=== PATIENT | female | born 1935 | race Caucasian/White ===

== ENCOUNTER 2017-09-03 13:21 | Emergency (ER) | payer MEDICARE, OTHER ==
[2017-09-03] MEDS ORDERED: Sodium Chloride 0.9% 10 ML Syringe FLUSH PRN (13:52)
[2017-09-03] MEDS ORDERED: Albuterol/Ipratropium 3.0-0.5 MG/3 ML Neb Soln NEB PRN (13:57)
[2017-09-03] MEDS ORDERED: methylPREDNISolone Sodium Succinate 125 MG/2 ML SDV IM ONE (13:59)
[2017-09-03] MEDS ORDERED: Sodium Chloride 0.9% 1,000 ML IV SCH (14:00)
[2017-09-03] MEDS ORDERED: methylPREDNISolone Sodium Succinate 125 MG/2 ML SDV ONE (14:21)
[2017-09-03] MEDS: cefTRIAXone 2 GM Vial ONE ×2 (15:49→17:11)
[2017-09-03] MEDS ORDERED: cefTRIAXone 2 GM in Sodium Chloride 0.9% 100 ML IV ONE (15:50)
--- NOTE | 2017-09-03 15:50 | EDM.PDOC ---
ED HPI GENERAL MEDICAL PROBLEM - General Chief Complaint: General Stated Complaint: SOB/FEVER Time Seen by Provider: 09/03/17 13:22 Source of Information: Reports: Patient, Family History Limitations: Reports: No Limitations - History of Present Illness INITIAL COMMENTS - FREE TEXT/NARRATIVE: Patient is a 81 year old woman who has COPD and is status post carotid endarterectomy, AAA and bilateral femoral artery repair at [facility] by Dr. Ruiz. She has had cold symptoms the last 2 and 1/2 days since 2017 that have been flaring her COPD and causing her to be more short of breath. This afternoon her breathing worsened and by the time her daughter and son in law got her to the ED her oxygen was 77% on room air. She has had no pain but just difficulty breathing. Onset: Gradual Onset Date: 09/01/17 Onset Time: 09:00 Duration: Day(s): (2.5) Location: Reports: Chest Quality: Reports: Same as Previous Episode Severity: Severe Improves with: Reports: Medication, Other (Oxygen and breathing treatments.) Worsens with: Reports: Movement Context: Reports: Other (History of multiple vascular surgery procedures.) Associated Symptoms: Reports: No Other Symptoms - Related Data Allergies Allergy/AdvReac Type Severity Reaction Status Date / Time No Known Allergies Allergy Verified 09/03/17 14:12 Home Meds: Home Meds Aspirin 162 mg PO DAILY 09/03/17 [History] Metoprolol Succinate [Toprol Xl] 50 mg PO DAILY 09/03/17 [History] amLODIPine Besylate [Amlodipine Besylate] 10 mg PO QPM 09/03/17 [History] atorvaSTATin [Lipitor] 20 mg PO DAILY 09/03/17 [History] Social & Family History - Tobacco Use Smoking Status *Q: Former Smoker Used Tobacco, but Quit: Yes Month Tobacco Last Used: 8 ED ROS GENERAL - Review of Systems Review Of Systems: See Below Constitutional: Reports: Weakness HEENT: Reports: No Symptoms Respiratory: Reports: Shortness of Breath, Wheezing, Cough Cardiovascular: Reports: No Symptoms Endocrine: Reports: No Symptoms GI/Abdominal: Reports: No Symptoms : Reports: No Symptoms Musculoskeletal: Reports: No Symptoms Skin: Reports: No Symptoms Neurological: Reports: No Symptoms Psychiatric: Reports: No Symptoms Hematologic/Lymphatic: Reports: No Symptoms Immunologic: Reports: No Symptoms ED EXAM, GENERAL - Physical Exam Exam: See Below Exam Limited By: No Limitations General Appearance: Alert, Moderate Distress Eye Exam: Bilateral Eye: EOMI, Normal Fundi, Normal Inspection Ears: Normal External Exam, Normal Canal, Hearing Grossly Normal, Normal TMs Ear Exam: Bilateral Ear: Auricle Normal, Canal Normal, TM normal Nose: Normal Inspection, Normal Mucosa, No Blood Throat/Mouth: Normal Inspection, Normal Lips, Normal Teeth, Normal Gums, Normal Oropharynx, Normal Voice, No Airway Compromise Head: Atraumatic, Normocephalic Neck: Normal Inspection, Supple, Non-Tender, Full Range of Motion Respiratory/Chest: Respiratory Distress, Decreased Breath Sounds, Rales ( Bibasilar R>L), Wheezing Cardiovascular: Normal Peripheral Pulses, Regular Rate, Rhythm, No Edema, No Gallop, No JVD, No Murmur, No Rub GI/Abdominal: Normal Bowel Sounds, Soft, Non-Tender, No Organomegaly, No Distention, No Abnormal Bruit, No Mass Back Exam: Normal Inspection, Full Range of Motion, NT Extremities: Normal Inspection, Normal Range of Motion, Non-Tender, Normal Capillary Refill, No Pedal Edema Neurological: Alert, Oriented, CN II-XII Intact, Normal Cognition, Normal Gait, Normal Reflexes, No Motor/Sensory Deficits Psychiatric: Normal Affect, Normal Mood Skin Exam: Warm, Dry, Intact, Normal Color, No Rash Lymphatic: No Adenopathy EKG INTERPRETATION EKG Date: 09/03/17 Rhythm: NSR [place]: Normal P-Wave: Present QRS: Normal ST-T: Other (Diffuse ST changes in both anterior and inferior leads.) QT: Normal Comparison: NA - No Prior EKG Course - Vital Signs Text/Narrative:: Patient had an Oxygen level on RA on admission to ED of 77%. She was put on 100 % oxygen with nonbreather mask and given a Duoneb which brought her Oxygen level to 97%. She felt much better at that level. She has elevated Troponin of 2.52 and EKG changes consistent with a NSTEMI. She will be flown by [employer] to [facility] where her Cardiologists and Vascular Surgeons are. She is pain free and breathing good on her nonrebreathing mask. Dr. Johnson has accepted her in transport. Last Recorded V/S: Last Vital Signs Temp 37.7 C 09/03/17 13:21 Pulse 101 H 09/03/17 14:48 Resp 24 H 09/03/17 13:21 BP 101/63 09/03/17 15:39 Pulse Ox 100 09/03/17 14:48 - Orders/Labs/Meds Orders: Active Orders 24 hr Category Date Time Status EKG Documentation Completion [RC] ASDIRECTED Care 09/03/17 13:52 Active RT Aerosol Therapy [RC] ASDIRECTED Care 09/03/17 13:58 Active CXR [Chest 1V Frontal] [CR] Stat Exams 09/03/17 13:53 Taken Albuterol/Ipratropium [DuoNeb 3.0-0.5 MG/3 ML] Med 09/03/17 13:57 Active 3 ml NEB Q2H PRN Sodium Chloride 0.9% [Normal Saline] 1,000 ml Med 09/03/17 14:00 Active IV ASDIRECTED Sodium Chloride 0.9% [Saline Flush] Med 09/03/17 13:52 Active 10 ml FLUSH ASDIRECTED PRN Saline Lock Insert [OM.PC] Routine Oth 09/03/17 13:52 Ordered Medication Orders Albuterol/Ipratropium (Duoneb 3.0-0.5 Mg/3 Ml) 3 ml NEB Q2H PRN PRN Reason: Dyspnea Last Admin: 09/03/17 13:45 Dose: 3 ml Sodium Chloride (Normal Saline) 1,000 mls @ 125 mls/hr IV ASDIRECTED REBEKAH Last Admin: 09/03/17 14:14 Dose: 125 mls/hr Sodium Chloride (Saline Flush) 10 ml FLUSH ASDIRECTED PRN PRN Reason: Keep Vein Open Labs: Laboratory Tests 09/03/17 09/03/17 Range/Units 14:30 14:30 WBC 16.4 H D (4.0-11.0) K/uL RBC 4.47 (3.80-5.80) M/uL Hgb 13.7 (11.5-16.5) g/dL Hct 40.9 (37.0-47.0) % MCV 92 (76-96) fL MCH 30.6 (27.0-32.0) pg MCHC 33.5 (31.0-35.0) g/dL RDW 13.1 (11.0-16.0) % Plt Count 99 L D (150-500) K/uL Neut % (Auto) 83.4 H (45.0-70.0) % Lymph % (Auto) 5.8 L (20.0-40.0) % [place] % (Auto) 10.7 H (3.0-10.0) % Eos % (Auto) 0.0 L (1.0-5.0) % Baso % (Auto) 0.1 (0.0-0.5) % Neut # (Auto) 13.66 H (2.00-7.50) K/uL Lymph # (Auto) 0.95 L (1.50-4.00) K/uL [place] # (Auto) 1.75 H (0.20-0.80) K/uL Eos # (Auto) 0.00 L (0.04-0.40) K/uL Baso # (Auto) 0.01 L (0.02-0.10) K/uL Sodium 134 L (136-145) mmol/L Potassium 3.8 (3.5-5.1) mmol/L Chloride 98 (98-107) mmol/L Carbon Dioxide 26.9 D (21.0-32.0) mmol/L Anion Gap 12.9 (5.0-15.0) mmol/L BUN 17 (8-26) mg/dL Creatinine 1.08 H (0.55-1.02) mg/dL Est Cr Clr Drug Dosing TNP Estimated GFR (MDRD) 49 L (>60) MLS/MIN BUN/Creatinine Ratio 15.7 (6-25) Glucose 151 H D (74-100) mg/dL Calcium 8.7 (8.5-10.1) mg/dL Total Bilirubin 0.8 D (0.0-1.0) mg/dL AST 73 H (15-37) U/L ALT 26 (12-78) U/L Alkaline Phosphatase 91 (46-116) U/L Troponin I 2.520 H* (0.000-0.060) ng/mL Total Protein 7.5 (6.4-8.2) g/dL Albumin 3.6 (3.4-5.0) g/dL Globulin 3.9 (2.2-4.2) g/dL Albumin/Globulin Ratio 0.9 (0.8-2.0) Meds: Medications Generic Name Dose Route Start Last Admin Trade Name Freq PRN Reason Stop Dose Admin Albuterol/Ipratropium 3 ml 09/03/17 13:57 09/03/17 13:45 Duoneb 3.0-0.5 Mg/3 Ml NEB 3 ml Q2H PRN Administration Dyspnea Sodium Chloride 1,000 mls @ 125 mls/hr 09/03/17 14:00 09/03/17 14:14 Normal Saline IV 125 mls/hr ASDIRECTED REBEKAH Administration Sodium Chloride 10 ml 09/03/17 13:52 Saline Flush FLUSH ASDIRECTED PRN Keep Vein Open Discontinued Medications Generic Name Dose Route Start Last Admin Trade Name Freq PRN Reason Stop Dose Admin Ceftriaxone Sodium Confirm 09/03/17 15:36 Rocephin Administered 09/03/17 15:37 Dose 2 gm .ROUTE .STK-MED ONE Methylprednisolone Sodium Succinate 125 mg 09/03/17 13:59 09/03/17 14:21 Solu-Medrol IM 09/03/17 14:00 125 mg ONETIME ONE Administration Methylprednisolone Sodium Succinate Confirm 09/03/17 14:21 09/03/17 14:30 Solu-Medrol Administered 09/03/17 14:22 Not Given Dose 125 mg .ROUTE .STK-MED ONE Departure - Departure Time of Disposition: 16:03 Disposition: DC/Tfer to Acute Hospital 02 Condition: Fair Clinical Impression: Pneumonia, NSTEMI (non-ST elevated myocardial infarction) - Discharge Information Referrals: PCP,None [Primary Care Provider] - - My Orders Last 24 Hours: My Active Orders 09/03/17 13:52 EKG Documentation Completion [RC] ASDIRECTED Sodium Chloride 0.9% [Saline Flush] 10 ml FLUSH ASDIRECTED PRN Saline Lock Insert [OM.PC] Routine 09/03/17 13:53 CXR [Chest 1V Frontal] [CR] Stat 09/03/17 13:57 Albuterol/Ipratropium [DuoNeb 3.0-0.5 MG/3 ML] 3 ml NEB Q2H PRN 09/03/17 13:58 RT Aerosol Therapy [RC] ASDIRECTED 09/03/17 14:00 Sodium Chloride 0.9% [Normal Saline] 1,000 ml IV ASDIRECTED - Assessment/Plan Last 24 Hours: My Active Orders 09/03/17 13:52 EKG Documentation Completion [RC] ASDIRECTED Sodium Chloride 0.9% [Saline Flush] 10 ml FLUSH ASDIRECTED PRN Saline Lock Insert [OM.PC] Routine 09/03/17 13:53 CXR [Chest 1V Frontal] [CR] Stat 09/03/17 13:57 Albuterol/Ipratropium [DuoNeb 3.0-0.5 MG/3 ML] 3 ml NEB Q2H PRN 09/03/17 13:58 RT Aerosol Therapy [RC] ASDIRECTED 09/03/17 14:00 Sodium Chloride 0.9% [Normal Saline] 1,000 ml IV ASDIRECTED
[2017-09-03] MEDS ORDERED: Azithromycin 500 MG in Sodium Chloride 0.9% 250 ML IV ONE (15:51)
--- NOTE | 2017-09-04 08:25 | CR ---
DATE OF SERVICE: 09/03/17 CLINICAL DATA: Dyspnea AP CHEST: Comparison is made to a prior exam dated 05/21/11. The heart is enlarged. It has increased in size from the prior exam. There is calcification of the aortic arch. The pulmonary vasculature appears more prominent than on the prior exam and there is some cephalization of flow consistent with pulmonary venous congestion. Congestive failure is suspected. There are densities in both lower lungs, right greater than left consistent with basilar atelectasis or infiltrate. Pneumonia should be considered. There is a small calcified granuloma in the right lower lung. No pneumothorax. No pleural effusions. [id number] [facility]
== END 2017-09-03 16:50 ==
LOC: LB.ED 13:21
DX: I21.4 Non-ST elevation (NSTEMI) myocardial infarction (principal); J18.9 Pneumonia, unspecified organism; Z79.82 Long term (current) use of aspirin; Z79.899 Other long term (current) drug therapy; Z87.891 Personal history of nicotine dependence
CPT/HCPCS: 36415; 71045; 80053; 84484; 85025; 85610; 85730; 87040; 87804; 93005; 96361; 96365; 96372; 96375; 99285; A0425; A0429; J0456; J0696; J2930; J7030; J7040; J7050; J7620

== ENCOUNTER 2017-10-03 05:12 | Observation (INO) | payer MEDICARE, OTHER ==
--- NOTE | 2017-10-03 05:36 | EDM.PDOC ---
ED HPI GENERAL MEDICAL PROBLEM - General Chief Complaint: General Stated Complaint: HEMATEMESIS Time Seen by Provider: 10/03/17 05:34 Source of Information: Reports: Patient, RN History Limitations: Reports: No Limitations - History of Present Illness INITIAL COMMENTS - FREE TEXT/NARRATIVE: 81 yr female presents with n/V/Diarrhea. States vomitted some blood this am. States recent discharge from hospital for pneumonia. - Related Data Allergies Allergy/AdvReac Type Severity Reaction Status Date / Time imaging dye Allergy Hives Uncoded 10/03/17 15:51 Home Meds: Home Meds Aspirin 81 mg PO BID 09/03/17 [History] Metoprolol Succinate [Toprol Xl] 150 mg PO DAILY 09/03/17 [History] atorvaSTATin [Lipitor] 20 mg PO DAILY 09/03/17 [History] Cetirizine HCl [Zyrtec] 10 mg PO DAILY 10/03/17 [History] Furosemide 20 mg PO ASDIRECTED 10/03/17 [History] Umeclidinium Brm/Vilanterol Tr [Anoro Ellipta 62.5-25 MCG] 1 puff IH DAILY 10/03 [History] Past Medical History Cardiovascular History: Reports: CAD, [place] Other Cardiovascular History: States bottom two valves are "lazy". 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 Vuong notes Cardiovascular Surgical History: Reports: Other (See Below) Other Cardiovascular Surgeries/Procedures: [facility] GI Surgical History: Reports: Hernia Repair/Other Social & Family History - Family History Family Medical History: Noncontributory - Tobacco Use Smoking Status *Q: Former Smoker Used Tobacco, but Quit: Yes Month Tobacco Last Used: 8 ED ROS GENERAL - Review of Systems Review Of Systems: See Below Constitutional: Reports: Weakness. Denies: Fever, Chills HEENT: Reports: No Symptoms Respiratory: Reports: Cough Cardiovascular: Reports: Other (fast heart rate) GI/Abdominal: Reports: Diarrhea, Nausea, Vomiting Musculoskeletal: Reports: No Symptoms Skin: Reports: No Symptoms Neurological: Reports: No Symptoms Psychiatric: Reports: No Symptoms ED EXAM, GENERAL - Physical Exam Exam: See Below Exam Limited By: No Limitations General Appearance: Alert Nose: Normal Inspection Throat/Mouth: Normal Inspection, No Airway Compromise Head: Atraumatic, Normocephalic Neck: Normal Inspection, Supple, Non-Tender Respiratory/Chest: No Respiratory Distress, Lungs Clear, Normal Breath Sounds Cardiovascular: Normal Peripheral Pulses, Regular Rate, Rhythm, No Edema GI/Abdominal: Normal Bowel Sounds, Soft, Non-Tender Extremities: Normal Inspection, Non-Tender, Normal Capillary Refill Neurological: Alert, Oriented, Normal Cognition Psychiatric: Normal Affect, Normal Mood Skin Exam: Warm, Dry, Normal Color EKG INTERPRETATION EKG Date: 10/03/17 Time: 06:31 Rhythm: NSR Rate (Beats/Min): 77 P-Wave: Present QRS: Normal Comparison: No Change Course - Vital Signs Last Recorded V/S: Last Vital Signs Temp 99 F 10/03/17 16:00 Pulse 88 10/03/17 16:00 Resp 16 10/03/17 16:00 BP 126/70 10/03/17 16:00 Pulse Ox 92 L 10/03/17 16:00 - Orders/Labs/Meds Orders: Medication Orders Atorvastatin Calcium (Lipitor) 20 mg PO DAILY [facility] Last Admin: 10/03/17 13:27 Dose: Not Given Sodium Chloride (Sodium Chloride 0.45%) 1,000 mls @ 125 mls/hr IV ASDIRECTED [facility] Last Admin: 10/03/17 08:59 Dose: 125 mls/hr Metoprolol Succinate (Toprol Xl) 150 mg PO DAILY [facility] Last Admin: 10/03/17 13:26 Dose: Not Given Nf Med 1 Each ( Umeclidinium Brm/Vilanterol Tr [Anoro Ellipta 62.5-25 Mcg * Pt Own Med 1 puff IH DAILY [facility] Last Admin: 10/03/17 13:46 Dose: Not Given Ondansetron HCl (Zofran) 4 mg IVPUSH Q6H [facility] Last Admin: 10/03/17 13:14 Dose: 4 mg Admin: 10/03/17 06:30 Dose: 4 mg Pantoprazole Sodium (Protonix Iv) 40 mg IVPUSH Q12H REBEKAH Last Admin: 10/03/17 13:14 Dose: 40 mg Sodium Chloride (Saline Flush) 10 ml FLUSH ASDIRECTED PRN PRN Reason: Keep Vein Open Labs: Laboratory Tests 10/03/17 10/03/17 10/03/17 Range/Units 05:30 05:41 05:41 WBC 7.8 D (4.0-11.0) K/uL RBC 3.33 L (3.80-5.80) M/uL Hgb 10.2 L D (11.5-16.5) g/dL Hct 32.1 L D (37.0-47.0) % MCV 96 (76-96) fL MCH 30.6 (27.0-32.0) pg MCHC 31.8 (31.0-35.0) g/dL RDW 14.1 (11.0-16.0) % Plt Count 221 D (150-500) K/uL MPV 11.3 H (6.0-10.0) fL Neut % (Auto) 49.2 (45.0-70.0) % Lymph % (Auto) 33.2 (20.0-40.0) % [place] % (Auto) 13.8 H (3.0-10.0) % Eos % (Auto) 3.3 (1.0-5.0) % Baso % (Auto) 0.5 (0.0-0.5) % Neut # (Auto) 3.85 (2.00-7.50) K/uL Lymph # (Auto) 2.60 (1.50-4.00) K/uL [place] # (Auto) 1.08 H (0.20-0.80) K/uL Eos # (Auto) 0.26 (0.04-0.40) K/uL Baso # (Auto) 0.04 (0.02-0.10) K/uL Sodium 147 H (136-145) mmol/L Potassium 4.6 D (3.5-5.1) mmol/L Chloride 109 H (98-107) mmol/L Carbon Dioxide 28.7 (21.0-32.0) mmol/L Anion Gap 13.9 (5.0-15.0) mmol/L BUN 30 H D (8-26) mg/dL Creatinine 1.19 H (0.55-1.02) mg/dL Est Cr Clr Drug Dosing TNP Estimated GFR (MDRD) 44 L (>60) MLS/MIN BUN/Creatinine Ratio 25.2 H (6-25) Glucose 135 H (74-100) mg/dL Calcium 8.4 L (8.5-10.1) mg/dL Total Bilirubin 0.4 D (0.0-1.0) mg/dL AST 19 (15-37) U/L ALT 19 (12-78) U/L Alkaline Phosphatase 74 (46-116) U/L Troponin I < 0.017 D (0.000-0.060) ng/mL Total Protein 5.8 L (6.4-8.2) g/dL Albumin 2.7 L (3.4-5.0) g/dL Globulin 3.1 (2.2-4.2) g/dL Albumin/Globulin Ratio 0.9 (0.8-2.0) Meds: Medications Generic Name Dose Route Start Last Admin Trade Name Freq PRN Reason Stop Dose Admin Atorvastatin Calcium 20 mg 10/03/17 11:00 10/03/17 13:27 Lipitor PO Not Given DAILY REBEKAH Sodium Chloride 1,000 mls @ 125 mls/hr 10/03/17 06:30 10/03/17 08:59 Sodium Chloride 0.45% IV 125 mls/hr ASDIRECTED REBEKAH Administration Metoprolol Succinate 150 mg 10/03/17 11:00 10/03/17 13:26 Toprol Xl PO Not Given DAILY REBEKAH Nf Med 1 Each ( 1 puff 10/03/17 10:45 10/03/17 13:46 Umeclidinium Brm/ IH Not Given Vilanterol Tr [Anoro DAILY REBEKAH Ellipta 62.5-25 Mcg * Pt Own Med Ondansetron HCl 4 mg 10/03/17 06:30 10/03/17 13:14 Zofran IVPUSH 4 mg Q6H REBEKAH Administration Pantoprazole Sodium 40 mg 10/03/17 11:00 10/03/17 13:14 Protonix Iv IVPUSH 40 mg Q12H REBEKAH Administration Sodium Chloride 10 ml 10/03/17 15:50 Saline Flush FLUSH ASDIRECTED PRN Keep Vein Open Discontinued Medications Generic Name Dose Route Start Last Admin Trade Name Juan PRN Reason Stop Dose Admin Hydromorphone HCl 1 mg 10/03/17 15:58 Dilaudid IVPUSH 10/03/17 15:59 ONETIME ONE Hydromorphone HCl Confirm 10/03/17 16:00 10/03/17 16:10 Dilaudid Administered 10/03/17 16:01 Not Given Dose 4 mg .ROUTE .STK-MED ONE Sodium Chloride 1,000 mls @ 125 mls/hr 10/03/17 05:45 Normal Saline IV ASDIRECTED REBEKAH Sodium Chloride 1,000 mls @ 999 mls/hr 10/03/17 15:49 10/03/17 15:00 Normal Saline IV 10/03/17 16:49 999 mls/hr .BOLUS ONE Administration Pantoprazole Sodium 40 mg 10/03/17 06:19 10/03/17 08:56 Protonix Iv IVPUSH 10/03/17 06:20 40 mg ONETIME ONE Administration - Re-Assessments/Exams Free Text/Narrative Re-Assessment/Exam: 10/03/17 06:31 History of heart disease will check Troponin and EKG. Zofran given for nausea and states some relief of nausea. Pt sitting with HOB elevated 30* and resting. No chest pain. Family here and concerned heart related nausea. Pain to abdomen was right middle,lateral of abdomen. No more vomiting since home. Son states bright red blood at pt home in sink. Pt quiet and resting, no acute distress. EKG completed. 10/03/17 06:39 Will admit to observation. Start IV 0.45 normal saline at 125cc /hr, Protonix 40 mg IV and will get stool for occult blood. Pt resting well and no acute distress, no shortness of breath and no pain. EKG shows NSR Inferior infarct age undetermined, no change from previous tracing with this. 10/03/17 06:44 Transfer to observation. Free Text/Narrative Re-Assessment/Exam: 10/03/17 09:01 Pt had loose stool, test positive for occult blood. Consult w Dr Thomas, PCP of pt. Will check abdomen x-ray, influenza screen, U/A and repeat troponins. Continue to observe and IV fluids. Free Text/Narrative Re-Assessment/Exam: 10/03/17 17:06 Pt continues with nausea and vomiting with hematemesis and hematchezia. IV Zofran and Protonix 80 mg IV given to pt. Hgb decrease from 10.2 on admit to 9.3. Abdominal flat and upright x-ray completed with possible , early bowel obstruction or ileus. Pt has history of aortic aneurysm repair 2010. History of pneumonia in last month and [facility] reported per pt. Pt has been having loose stools for about 2 months. C-diff negative, checked today. Contacted [facility] for transfer and facility report no ICU beds and unable to take pt. Contacted [facility], [facility] and accepting physician of Dr Kay, internal medicine to ICU. Pt has been stable vital signs 99.0, 88- 16 - 126/60 and SpO2=92% on room air. 2 IV's with 0.9% Nacl with 2 liters infusing. Family present and aware of pt condition. SonRick is leaving facility by car to meet pt in [place]. DaughterErick and son-in-law here with pt. Pt signed appropriate forms for transfer and transport. Local EMS is BLS and not supported to transfer pt with acute hematemesis and hematchezia. Pt remains stable during this visit. Will transport [employer]. Departure - Departure Time of Disposition: 17:00 Disposition: DC/Tfer to Acute Hospital 02 Condition: Serious Clinical Impression: Gastrointestinal bleed, Hematochezia, Hematemesis with nausea - Discharge Information
[2017-10-03] MEDS ORDERED: Sodium Chloride 0.9% 1,000 ML IV SCH (05:45)
[2017-10-03] MEDS ORDERED: Pantoprazole 40 MG Vial IVPUSH ONE (06:19)
[2017-10-03] MEDS: Ondansetron 4 MG/2 ML SDV IVPUSH SCH ×2 (06:30→13:14)
[2017-10-03] MEDS ORDERED: Sodium Chloride 0.45% 1,000 ML IV SCH (06:30)
[2017-10-03] MEDS ORDERED: UMECLIDINIUM BRM IH SCH (10:45)
[2017-10-03] MEDS ORDERED: VILANTEROL TR IH SCH (10:45)
[2017-10-03] MEDS ORDERED: METOPROLOL SUCCINATE 50 MG PO SCH (11:00)
[2017-10-03] MEDS ORDERED: Pantoprazole 40 MG Vial IVPUSH SCH (11:00)
[2017-10-03] MEDS ORDERED: ATORVASTATIN 20 MG PO SCH (11:00)
--- NOTE | 2017-10-03 12:21 | CR ---
DATE OF SERVICE: 10/03/17 CLINICAL DATA: abdominal pain, nausea SUPINE AND UPRIGHT ABDOMEN: Comparison is made to a prior exam dated 05/23/11. There are numerous surgical clips in the mid abdomen. There is a moderate amount of stool noted throughout the colon. There is some small bowel gas. There are scattered air-fluid levels noted within the small bowel and colon on the upright film. Early distal obstruction or early ileus is suspected. No free air. There are vascular calcifications in the left upper abdomen and pelvis. No other significant findings. [id number] MTD[facility]
[2017-10-03] MEDS ORDERED: Sodium Chloride 0.9% 1,000 ML IV ONE (15:49)
[2017-10-03] MEDS ORDERED: Sodium Chloride 0.9% 10 ML Syringe FLUSH PRN (15:50)
[2017-10-03] MEDS ORDERED: HYDROmorphone 2 MG/ML Syringe IVPUSH ONE (15:58)
[2017-10-03] MEDS ORDERED: HYDROmorphone 4 MG/ML Syringe ONE (16:00)
--- NOTE | 2017-10-05 17:57 | PCM.DCSUM1 ---
Discharge Summary - Hospital Course HPI Initial Comments: 81 yr female presented to ER via ambulance with nausea, vomiting and loose stools. Stated loose stools have been going on for quite some time. States she did vomit some blood this am and was weak so called the ambulance. Pt stated some right sided abdominal pain. IV 0.45% normal saline started. Pt placed on observation. EKG completed and troponins checked and normal results noted. 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 Troponins monitored and subsequent levels normal. Pt continued with more nausea and vomiting and stools , positive for occult blood. Hematemesis noted. Nausea persisted despite use of Zofran and Protonix IV. Hgb repeated and note decrease in hgb. Contacted nearest facility, [facility] and no ICU beds and unable to take pt. Pt had previous hospitalization in August for pneumonia to [facility]. Dr Eliza MD accepted pt for transport to [facility] with hematemesis, hematochezia and decrease of Hgb 10.2 to 9.3 with tachycardia. - Discharge Data Discharge Date: 10/03/17 Discharge Disposition: DC/Tfer to Acute Hospital 02 Condition: Serious - Discharge Diagnosis/Problem(s) (1) Gastrointestinal bleed SNOMED Code(s): 20473450 ICD Code: K92.2 - GASTROINTESTINAL HEMORRHAGE, UNSPECIFIED Status: Acute (2) Hematemesis with nausea SNOMED Code(s): 4215992 ICD Code: K92.0 - HEMATEMESIS Status: Acute (3) Hematochezia SNOMED Code(s): 237519675 ICD Code: K92.1 - MELENA Status: Acute - Patient Instructions Diet: NPO Activity: Bedrest - Discharge Plan Home Medications: Home Meds Aspirin 81 mg PO BID 09/03/17 [History] Metoprolol Succinate [Toprol Xl] 150 mg PO DAILY 09/03/17 [History] atorvaSTATin [Lipitor] 20 mg PO DAILY 09/03/17 [History] Cetirizine HCl [Zyrtec] 10 mg PO DAILY 10/03/17 [History] Furosemide 20 mg PO ASDIRECTED 10/03/17 [History] Umeclidinium Brm/Vilanterol Tr [Anoro Ellipta 62.5-25 MCG] 1 puff IH DAILY 10/03 [History] Forms: ED Department Discharge Referrals: PCP,None [Primary Care Provider] - - Discharge Summary/Plan Comment Discharge Summary/Plan Comment: Pt transfered to [facility] via [facility] with tachycardia, anemia, GI bleed with hematemesis and melena. Family present at transfer and will meet pt in [place]. Pt signed consent for transport and states understanding of need for ICU care with change in her health status from stable to serious and need for endoscopy. 2 IV's started with N/S infusing and Protonix IV given today and ASA was held today. - Patient Data Vitals - Most Recent: Last Vital Signs Temp 99 F 10/03/17 16:00 Pulse 88 10/03/17 16:00 Resp 16 10/03/17 16:00 BP 126/70 10/03/17 16:00 Pulse Ox 92 L 10/03/17 16:00 Weight - Most Recent: 123 lb 9.6 oz Med Orders - Current: Current Medications Discontinued Medications Atorvastatin Calcium (Lipitor) 20 mg PO DAILY [facility] Last Admin: 10/03/17 13:27 Dose: Not Given Hydromorphone HCl (Dilaudid) 1 mg IVPUSH ONETIME ONE Stop: 10/03/17 15:59 Hydromorphone HCl (Dilaudid) Confirm Administered Dose 4 mg .ROUTE .STK-MED ONE Stop: 10/03/17 16:01 Last Admin: 10/03/17 16:10 Dose: Not Given Sodium Chloride (Normal Saline) 1,000 mls @ 125 mls/hr IV ASDIRECTED [facility] Sodium Chloride (Sodium Chloride 0.45%) 1,000 mls @ 125 mls/hr IV ASDIRECTED [facility] Last Admin: 10/03/17 08:59 Dose: 125 mls/hr Sodium Chloride (Normal Saline) 1,000 mls @ 999 mls/hr IV .BOLUS ONE Stop: 10/03/17 16:49 Last Admin: 10/03/17 15:00 Dose: 999 mls/hr Metoprolol Succinate (Toprol Xl) 150 mg PO DAILY [facility] Last Admin: 10/03/17 13:26 Dose: Not Given Nf Med 1 Each ( Umeclidinium Brm/Vilanterol Tr [Anoro Ellipta 62.5-25 Mcg * Pt Own Med 1 puff IH DAILY [facility] Last Admin: 10/03/17 13:46 Dose: Not Given Ondansetron HCl (Zofran) 4 mg IVPUSH Q6H [facility] Last Admin: 10/03/17 13:14 Dose: 4 mg Pantoprazole Sodium (Protonix Iv) 40 mg IVPUSH ONETIME ONE Stop: 10/03/17 06:20 Last Admin: 10/03/17 08:56 Dose: 40 mg Pantoprazole Sodium (Protonix Iv) 40 mg IVPUSH Q12H [facility] Last Admin: 10/03/17 13:14 Dose: 40 mg Sodium Chloride (Saline Flush) 10 ml FLUSH ASDIRECTED PRN PRN Reason: Keep Vein Open *Q Meaningful Use (DIS) - VTE *Q VTE Criteria *Q: - Stroke *Q Stroke Criteria *Q: - AMI *Q AMI Criteria *Q:
== END 2017-10-03 17:00 ==
LOC: LB.ED 05:15 → LB.MS 06:12
PROVIDERS: ADMIT Nurse Practitioner Family; ATTEND Nurse Practitioner Family
DX: K92.2 Gastrointestinal hemorrhage, unspecified (principal); K92.0 Hematemesis; K92.1 Melena; I25.10 Atherosclerotic heart disease of native coronary artery without angina pectoris; J44.9 Chronic obstructive pulmonary disease, unspecified; Z79.82 Long term (current) use of aspirin; Z79.899 Other long term (current) drug therapy; Z91.041 Radiographic dye allergy status; Z87.891 Personal history of nicotine dependence
CPT/HCPCS: 36415; 74019; 80053; 81001; 82272; 83605; 84484; 85014; 85018; 85025; 87493; 87804; 93005; 99236; 99285; A0425; A0429; C9113; J2405; J3490; J7040; 96374; 96375; 96376; G0378

== ENCOUNTER 2017-10-15 08:49 | Emergency (ER) | payer MEDICARE, OTHER ==
[2017-10-15] MEDS ORDERED: Albuterol/Ipratropium 3.0-0.5 MG/3 ML Neb Soln NEB ONE (09:20)
[2017-10-15] MEDS ORDERED: Budesonide 0.5 MG/2 ML Neb Susp NEB ONE (09:22)
[2017-10-15] MEDS ORDERED: Albuterol/Ipratropium 3.0-0.5 MG/3 ML Neb Soln ONE (09:32)
[2017-10-15] MEDS ORDERED: methylPREDNISolone Sodium Succinate 125 MG/2 ML SDV ONE (09:44)
[2017-10-15] MEDS ORDERED: Furosemide 40 MG/4 ML VIAL ONE ×2 (09:44→10:42)
[2017-10-15] MEDS ORDERED: Ondansetron 4 MG/2 ML SDV ONE (09:48)
[2017-10-15] MEDS: Morphine 2 MG/ML Syringe IVPUSH PRN ×3 (10:17→10:32)
[2017-10-15] MEDS ORDERED: ceFAZolin 1 GM Vial IVPUSH ONE (11:00)
--- NOTE | 2017-10-15 11:57 | ER ---
HISTORY OF PRESENT ILLNESS: A 81-year-old female who comes in by ambulance with acute respiratory distress that started earlier this morning. The patient was at home when this developed. She states it came on fairly suddenly. O2 sats have been maintained in the lower to mid 90s with oxygen supplied by the EMS crew. The patient states it is hard to breathe. She is not having any chest pain or abdominal pain at this time. The patient has significant medical history. She had an [place] as well as pneumonia diagnosed on September 03, 2017. She was flown to [place] and was an inpatient there for a while. She is at home now, recovering, and trying to get strong enough to have surgery. The patient's daughter tells me that she has been doing better until just within the last few hours with her breathing. CURRENT MEDICATIONS: Reviewed. She is on Lasix 20 mg a day, Lipitor 20 mg a day, Anoro, Toprol 150 mg a day. I think she is currently on 100 mg a day per her daughter's statement and a baby aspirin b.i.d. OBJECTIVE: GENERAL APPEARANCE: The patient is in obvious respiratory distress. She is able to talk with two or three word sentences. VITAL SIGNS: Reveal she is initially afebrile. Blood pressure is in the 130s over 80s initially. Pulse is in the 120 to 125 range. EKG shows normal sinus rhythm with tachycardia. The patient was put on high-flow oxygen. A DuoNeb was given followed by Pulmicort neb treatment. This did clear the wheezes out of her lungs. She still has rales mainly in the lower and mid lobes at this time. Her breathing did not really improve with this treatment plan; therefore at this point, BiPAP was initiated. LABORATORY DATA: Labs taken today include a CBC showing a white count of 13.5. D-dimer is elevated at 3910. Comprehensive metabolic panel shows kidney function is maintained BUN is 19, creatinine 1.4. Lactic acid is 6.94. Troponin is 0.171 and a BNP is 27,569. DIAGNOSIS: 1. Congestive heart failure, severe. 2. Elevated troponin, possibly a non-ST elevated myocardial infarction. 3. Elevated D-dimer. 4. Borderline sepsis. TREATMENT PLAN: At this point, we contacted [facility] in [place] who accepted the patient, and arrangements were made for the patient to be transferred by [facility]. The patient did maintain with the BiPAP most of the time she was here. At one point, her sats dropped into the mid 80s. We were preparing to intubate her at that point but we added extra oxygen by nasal cannula, and it brought her sats up into the low 90s. Therefore, we did not intubate the patient. The patient was given Zofran 4 mg IV. She was given morphine 2.5 mg IV, which did bring her respirations down slightly and her pulse dropped to about 110 before leaving our facility. After receiving lab work, she was also given Ancef 1 g IV push. CRS/MODL /[id number]
--- NOTE | 2017-10-15 18:41 | CR ---
DATE OF SERVICE: 10/15/2017 CLINICAL DATA: SOB. AP CHEST: Comparison is made to a prior exam dated 10/11/2017. The heart remains enlarged. It does appear more prominent than on prior study. There is pulmonary vascular congestion and bilateral pulmonary edema consistent with congestive failure. There are bilateral pleural effusions, left greater than right. These have increased in volume from the prior exam. There is progressive infiltrate and consolidation in both lower lungs, left greater than right. Pneumonia should be considered. The exam is otherwise unchanged from the prior. [id number] [facility]
== END 2017-10-15 11:15 ==
LOC: LB.ED 08:49
DX: I50.9 Heart failure, unspecified (principal); I25.2 Old myocardial infarction; R79.1 Abnormal coagulation profile; R79.89 Other specified abnormal findings of blood chemistry; Z87.01 Personal history of pneumonia (recurrent); Z79.899 Other long term (current) drug therapy
CPT/HCPCS: 36415; 51702; 71045; 80053; 83605; 83880; 84484; 85025; 85379; 93005; 96374; 96375; 99285; 99291-25; 99292; A0425; A0429; J0690; J1940; J2270; J2405; J7620